=== PATIENT | female | born 1960 | race Caucasian/White ===

== ENCOUNTER 2020-09-15 10:49 | Emergency (ER) | payer OTHER ==
[~2020-09-15] VITALS: Ht 160 cm; Wt 84.1 kg
[2020-09-15 11:01] VITALS: Ht 160 cm; Wt 84.1 kg
[2020-09-15] MEDS ORDERED: NORVASC10 MG PO (11:04)
[2020-09-15] MEDS ORDERED: ZOLOFT50 MG PO (11:04)
[2020-09-15] MEDS ORDERED: ZOCOR20 MG PO (11:04)
[2020-09-15] MEDS ORDERED: BUSPAR10 MG PO (11:05)
[2020-09-15] MEDS ORDERED: TRIAMTERENE-HC1 EAC3 PO (11:05)
[2020-09-15] MEDS ORDERED: SYNTHROID50 MCG PO (11:06)
[2020-09-15 12:09] LABS: BASOPHILS 0.3 % (0-2); EOSINOPHILS 4.9 % (0-7); HEMATOCRIT 47.7 % (36.0-48.0); HEMOGLOBIN 15.8 g/dL (12-16); IMMATURE GRANULOCYTES 0.1 % (0-5); LYMPHOCYTE ABS# 2.52 10x3/uL (1.18-3.74); LYMPHOCYTES 31.9 % (15-50); MCH 27.4 pg (26.0-34.0); MCHC 33.1 g/dL (31.0-37.0); MCV 82.7 fL (80.0-100.0); MEAN PLATELET VOLUME 8.6 fL (7.4-10.4); MONOCYTES 5.4 % (2-11); NEUTROPHIL ABS# 4.54 10x3/uL (1.56-6.13); NEUTROPHILS 57.4 % (40-80); PLATELET COUNT 203 10x3/uL (130-400); RBC 5.77 10x6/uL (4.00-5.40); RDW 15.6 % (11.5-14.5); WBC 7.9 10x3/uL (4.8-10.8)
[2020-09-15 12:11] LABS: CALC OSMOLALITY 278 mosm/kg (275-300); CALCIUM 9.4 mg/dL (8.5-10.1); CARBON DIOXIDE 25.2 mmol/L (21.0-32.0); CHLORIDE - SERUM 101 mmol/L (98-107); CREATININE - SERUM 0.7 mg/dL (0.6-1.3); GLUCOSE 105 mg/dL (74-106); POTASSIUM - SERUM 3.3 mmol/L (3.5-5.1); SODIUM 138 mmol/L (136-145); UREA NITROGEN 20 mg/dL (7-18); eGFR NON AFRICAN AMERICAN > 90 mL/min (90-120)
[2020-09-15 12:12] LABS: APTT 24.9 SECONDS (22.8-39.4); INR 1.04 (0.85-1.17); PROTIME 12.6 SECONDS (11.6-15.0)
[2020-09-15 12:17] LABS: ALBUMIN 4.5 g/dL (3.4-5.0); ALKALINE PHOSPHATASE 79 U/L (30-120); ALT (SGPT) 36 U/L (10-68); BILIRUBIN - TOTAL 0.46 mg/dL (0.2-1.3); PROTEIN - SERUM 7.6 g/dL (6.4-8.2)
[2020-09-15 12:50] LABS: D-DIMER-QUANTITATIVE 2.56 ug/mLFEU (0.20-0.54)
[2020-09-15 13:12] VITALS: BP 148/78
== END 2020-09-15 13:13 | disposition home or self-care (01) ==
LOC: D.ER 10:49
PROVIDERS: Family Medicine
DX: M79.661 Pain in right lower leg (principal); M32.9 Systemic lupus erythematosus, unspecified; I10 Essential (primary) hypertension; Z72.0 Tobacco use

== ENCOUNTER 2020-09-24 18:35 | Emergency (ER) | payer OTHER ==
[~2020-09-24] VITALS: Ht 160 cm; Wt 84.1 kg
[~2020-09-24 18:35] MED LIST: BUSPAR10 MG PO; NORVASC10 MG PO; SYNTHROID50 MCG PO; TRIAMTERENE-HC1 EAC3 PO; ZOCOR20 MG PO; ZOLOFT50 MG PO
[2020-09-24 18:56] VITALS: Ht 160 cm; Wt 84.1 kg
[2020-09-24 19:41] LABS: BASOPHILS 0.3 % (0-2); EOSINOPHILS 3.6 % (0-7); HEMATOCRIT 47.7 % (36.0-48.0); HEMOGLOBIN 16.4 g/dL (12-16); IMMATURE GRANULOCYTES 0.2 % (0-5); LYMPHOCYTES 26.1 % (15-50); MCH 27.8 pg (26.0-34.0); MCHC 34.4 g/dL (31.0-37.0); MEAN PLATELET VOLUME 8.9 fL (7.4-10.4); MONOCYTES 5.9 % (2-11); NEUTROPHIL ABS# 6.35 10x3/uL (1.56-6.13); NEUTROPHILS 63.9 % (40-80); PLATELET COUNT 199 10x3/uL (130-400); RBC 5.89 10x6/uL (4.00-5.40); RDW 15.6 % (11.5-14.5)
[2020-09-24 19:46] LABS: CALC OSMOLALITY 282 mosm/kg (275-300); CALCIUM 9.9 mg/dL (8.5-10.1); CARBON DIOXIDE 27.3 mmol/L (21.0-32.0); CHLORIDE - SERUM 102 mmol/L (98-107); CREATININE - SERUM 0.7 mg/dL (0.6-1.3); GLUCOSE 93 mg/dL (74-106); POTASSIUM - SERUM 3.6 mmol/L (3.5-5.1); SODIUM 141 mmol/L (136-145); UREA NITROGEN 18 mg/dL (7-18); eGFR NON AFRICAN AMERICAN > 90 mL/min (90-120)
[2020-09-24 19:52] LABS: ALBUMIN 4.7 g/dL (3.4-5.0); ALKALINE PHOSPHATASE 82 U/L (30-120); ALT (SGPT) 36 U/L (10-68); BILIRUBIN - TOTAL 0.42 mg/dL (0.2-1.3); PROTEIN - SERUM 8.1 g/dL (6.4-8.2)
[2020-09-24] MEDS ORDERED: HYDROCODON-ACE1 EAC7 PO (20:56)
[2020-09-24] MEDS ORDERED: PREDNISONE20 MG PO (20:56)
[2020-09-24 21:25] VITALS: BP 146/90
== END 2020-09-24 21:27 | disposition home or self-care (01) ==
LOC: D.ER 18:35
PROVIDERS: Family Medicine
DX: M17.12 Unilateral primary osteoarthritis, left knee (principal); M32.9 Systemic lupus erythematosus, unspecified; I10 Essential (primary) hypertension; Z72.0 Tobacco use